=== PATIENT | female | born 1965 | race Caucasian/White ===

== ENCOUNTER 2017-05-25 06:34 | Emergency (ER) | payer OTHER ==
[~2017-05-25] VITALS: Ht 165.1 cm; Wt 80.0 kg
[2017-05-25 09:49] VITALS: BP 160/75
[2017-05-25] MEDS ORDERED: LIDOCAINE HCL 1% 20ML VIAL (Pyxis) INJ MC ONE (11:00)
== END 2017-05-25 11:47 | disposition home or self-care (01) ==
LOC: ER 06:34
DX: S01.01XA Laceration without foreign body of scalp, initial encounter (principal); Y09 Assault by unspecified means; Y93.89 Activity, other specified; Y92.89 Other specified places as the place of occurrence of the external cause; Y99.8 Other external cause status
CPT/HCPCS: 12001; 81025; 99283; J3490; Z7610